=== PATIENT | female | born 1950 | race Caucasian/White ===

== ENCOUNTER 2016-10-28 06:36 | Day surgery (SDC) | payer MEDICAID ==
[2016-10-28 08:14] VITALS: BMI 27.4
[2016-10-28] MEDS ORDERED: Propofol 10 mg/ml Inj (20 ML) ONE ×2 (08:45→09:01)
[2016-10-28] MEDS ORDERED: Lidocaine Hydrochloride 5 ML INJ ONE (08:45)
--- NOTE | 2016-10-28 08:46 | CP.SDSHP ---
Same Day Surgery H & P - History Proposed Procedure: Colonoscopy Pre-Op Diagnosis: Screening exam - Previous Medical/Surgical History Cardiac: Hypertension Endocrine/Metabolic: Diabetes Comments: Arthritis, hyperlipidemia Previous Surgical History: None - Allergies Allergies: Allergies No Known Allergies Allergy (Verified 04/17/15 06:53) - Current Medications Current Medications: reviewed, per reconciliation - Physical Exam General Appearance: [email or web address] Vital Signs: Vital Signs 10/28/16 07:12 Temperature 97.6 F Pulse Rate 85 Respiratory 17 Rate Blood Pressure 118/80 O2 Sat by Pulse 97 Oximetry Mental Status: Alert & Oriented x3 Heart: WNL Lungs: WNL GI: WNL - {Optional Preform as Required} Abdomen: WNL - Impression Impression: screening exam Pt. Evaluated Today:Candidate for Anesthesia & Procedure: Yes - Date & Time Date: 10/28/16 Time: 08:46 Short Stay Discharge - Short Stay Discharge Admitting Diagnosis/Reason for Visit: SCREENING Disposition: HOME/ ROUTINE
[2016-10-28] MEDS ORDERED: Lactated Ringer's 500 ML IV ONE ×2 (08:50)
[2016-10-28 09:29] VITALS: TEMP 97
[2016-10-28 10:02] VITALS: O2SAT 100
[2016-10-28 10:09] VITALS: BP 124/75; PULSE 65; RESP 20
== END 2016-10-28 10:36 | disposition home or self-care (01) ==
LOC: C.ENDO 06:36
PROVIDERS: ATTEND Internal Medicine Gastroenterology
DX: D12.3 Benign neoplasm of transverse colon (principal); K57.30 Diverticulosis of large intestine without perforation or abscess without bleeding; K64.8 Other hemorrhoids
CPT/HCPCS: 45388; 82948; 88305; J2704; J7120